=== PATIENT | female | born 1950 | race Caucasian/White ===

== ENCOUNTER 2020-05-12 17:05 | Emergency (ER) | payer OTHER | END 2020-05-12 20:39 | disposition home or self-care (01) | LOC: ER 17:05 | DX: S42.341A Displaced spiral fracture of shaft of humerus, right arm, initial encounter for closed fracture (principal); W10.8XXA Fall (on) (from) other stairs and steps, initial encounter; Y93.89 Activity, other specified; Y92.89 Other specified places as the place of occurrence of the external cause; Y99.8 Other external cause status ==

== ENCOUNTER 2022-04-19 20:20 | Emergency (ER) | payer OTHER ==
[~2022-04-19] VITALS: Ht 165.1 cm; Wt 72.6 kg
[~2022-04-19 20:20] MED LIST: LIPITOR40 M1 PO; LOSARTAN-HCTZ1 EAC1 PO; METFORMIN HCL500 M3 PO; NEURONTIN300 MG PO; TOPROL XL50 M1 PO
== END 2022-04-20 07:41 | disposition expired ==
LOC: ER 20:20
DX: I21.9 Acute myocardial infarction, unspecified (principal); R07.89 Other chest pain; R11.10 Vomiting, unspecified; F41.9 Anxiety disorder, unspecified; I10 Essential (primary) hypertension; E11.9 Type 2 diabetes mellitus without complications; Z79.899 Other long term (current) drug therapy; Z20.822 Contact with and (suspected) exposure to COVID-19